=== PATIENT | female | born 1980 | race Caucasian/White ===

== ENCOUNTER → 2017-03-29 | Outpatient (CLI) | payer BC ==
[2016-09-29 07:00] VITALS: BP 96/52
[~2017-03-29] MED LIST: ACET325T9 PO; APIX5TAB PO; ASPI81TA9 PO; ATOR40TA59 PO; CLOP75TA PO; FAMO-63 PO; PROAIR HFA8.5 GM INH
--- NOTE | 2017-03-29 18:20 | CARD ---
APPROVED REPORT EXAM: Two-dimensional and M-mode echocardiogram with Doppler and color Doppler. Other Information Quality : GoodHR: 85bpm Rhythm : NSR INDICATION Cryptogenic stroke Echo Enhancing Agent Agent/Amount Used: Agitated Saline 8mL 2D DIMENSIONS RVDd3.1 (2.9-3.5cm)Left Atrium(2D)3.4 (1.6-4.0cm) IVSd0.8 (0.7-1.1cm)Aortic Root(2D)2.6 (2.0-3.7cm) LVDd5.2 (3.9-5.9cm)LVOT Diameter2.3 (1.8-2.4cm) PWd0.8 (0.7-1.1cm)LVDs3.6 (2.5-4.0cm) FS (%) 29.8 %SV73.2 ml LVEF(%)56.6 (>50%) Aortic Valve AoV Peak Eleazar.119.2cm/sAoV VTI26.1cm AO Peak GR.5.7mmHgLVOT Peak Eleazar.92.0cm/s AO Mean GR.3mmHgAVA (VMAX)3.32cm2 Mitral Valve MV E Pigpjbwv15.1cm/sMV E Peak Gr.4mmHg MV DECEL [id number] A Bbhuajcf85.0cm/s MV E Mean Gr.2mmHgE/A Ratio1.5 MV A [id number] Pulmonary Valve PV Peak Rzcxjyxp28.8cm/s Tricuspid Valve TR P. Pvngydnm018ca/sTR Peak Gr.14mmHg Pulmonary Vein S1 Eefvbuxq19.5cm/sD2 Czarltcl86.6cm/s PVa [id number] LEFT VENTRICLE The left ventricle is normal size. There is normal left ventricular wall thickness. The left ventricu lar systolic function is normal and the ejection fraction is within normal range. The Ejection Fracti on is 55-60%. There is normal LV segmental wall motion. The left ventricular diastolic function and f illing is normal for age. There is no ventricular septal defect visualized. RIGHT VENTRICLE The right ventricle is normal size. There is normal right ventricular wall thickness. The right ventr icular systolic function is normal. ATRIA The left atrium size is normal. The right atrium size is normal. The interatrial septum is intact wit h no evidence for an atrial septal defect or patent foramen ovale as noted on 2-D or Doppler imaging. 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 Injection of bubbles documented no interatrial shunt. AORTIC VALVE The aortic valve is trileaflet. Doppler and Color Flow revealed no significant aortic regurgitation. There is no significant aortic valvular stenosis. MITRAL VALVE There is no evidence of mitral valve prolapse. There is no mitral valve stenosis. Doppler and Color F low revealed mild mitral regurgitation. TRICUSPID VALVE Doppler and Color Flow revealed trace tricuspid regurgitation. The pulmonary artery systolic pressure is estimated at 17 mmHg. There is no pulmonary hypertension. PULMONIC VALVE Doppler and Color Flow revealed no pulmonic valvular regurgitation. There is no pulmonic valvular jesus nosis. GREAT VESSELS The aortic root is normal in size. The ascending aorta is normal in size. The IVC is normal in size a nd collapses >50% with inspiration. PERICARDIAL EFFUSION There is no evidence of significant pericardial effusion. Critical Notification Critical Value: No <Conclusion> The left ventricular systolic function is normal and the ejection fraction is within normal range. Th e Ejection Fraction is 55-60%. There is normal LV segmental wall motion. The interatrial septum is intact with no evidence for an atrial septal defect or patent foramen ovale as noted on 2-D or Doppler imaging. 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 Injection o f bubbles documented no interatrial shunt.
== END | disposition home or self-care (01) ==
LOC: ECHO 11:04
PROVIDERS: ATTEND Internal Medicine Cardiovascular Disease
DX: I08.1 Rheumatic disorders of both mitral and tricuspid valves (principal)
CPT/HCPCS: C8929